=== PATIENT | male | born 1960 | race Caucasian/White ===

== ENCOUNTER 2017-11-01 15:18 | Emergency (ER) | payer OTHER ==
[~2017-11-01] VITALS: Ht 198.1 cm; Wt 104.3 kg
[~2017-11-01 15:18] MED LIST: BP MED; CHOLESTEROL MED; FAMOTIDINE20 MG PO; METHOCARBAMOL750 MG PO; METOPROLOL TART25 MG PO; NORCO 10-325 T1 EACH PO; OXECTA7.5 MG PO; OXYCODONE HCL10 MG PO; PAROXETINE HCL40 MG PO; PAXIL30 MG PO; PAXIL40 MG PO; PERCOCET 10-321 EACH PO; PERCOCET 5-3251 EACH PO; PRILOSEC20 MG PO; PROMETHAZINE HC25 M1 PO; SIMVASTATIN20 MG PO; XARELTO10 MG PO; ZOFRAN ODT4 MG SL
== END 2017-11-01 18:08 | disposition home or self-care (01) ==
LOC: ED 15:18
DX: R51 Headache (principal); I10 Essential (primary) hypertension; C71.9 Malignant neoplasm of brain, unspecified; Z88.5 Allergy status to narcotic agent; Z88.8 Allergy status to other drugs, medicaments and biological substances; Z79.899 Other long term (current) drug therapy
CPT/HCPCS: 96374; 96375; 99282; J1200; J1885; J2765

== ENCOUNTER 2018-08-06 23:01 | Emergency (ER) | payer OTHER ==
--- OUTSIDE RECORDS SUMMARY | 2018-08-06 23:06 | XMS ---
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 EConrado. VISIT COUNT (12 MO.) [address] [facility] [place] TOTAL 2 NOTE: Visits indicate total known visits. ED/UCC VISIT TRACKING (12 MO.) 08/06/2018 23:01 [facility] [place] TYPE: Emergency COMPLAINT: - FALL,HEAD INJURY/PAIN 11/01/2017 15:19 [facility] [place] TYPE: Emergency COMPLAINT: - HEADACHE DIAGNOSES: - Allergy status to narcotic agent status - Other meterman (current) drug therapy - Allergy status to other drugs, medicaments and biological substances status - Essential (primary) hypertension - Headache - Malignant neoplasm of brain, unspecified INPATIENT VISIT TRACKING (12 MO.) No inpatient visits to display in this time frame [id number]
--- NOTE | 2018-08-08 00:55 | EKG ---
[facility] [address] [place] [address] Signed Normal sinus rhythm Left bundle branch block Abnormal ECG No previous ECGs available Confirmed by SANDY BERNARD MD ([id number]) on 08/08/2018 12:54:41 AM Electronically Signed By: SANDY BERNARD MD 08/08/18 0055 PATIENT NAME: PASCUAL AHMADI Electrocardiogram DATE OF : 56 PHYSICIAN: SANDY BERNARD MD REPORT #: [id number] REPORT IS CONFIDENTIAL AND NOT TO BE RELEASED WITHOUT AUTHORIZATION
== END 2018-08-07 00:40 | disposition home or self-care (01) ==
LOC: ED 23:01
DX: S09.90XA Unspecified injury of head, initial encounter (principal); I10 Essential (primary) hypertension; E87.6 Hypokalemia; W18.30XA Fall on same level, unspecified, initial encounter; Z88.5 Allergy status to narcotic agent; Z88.8 Allergy status to other drugs, medicaments and biological substances; Z79.899 Other long term (current) drug therapy
CPT/HCPCS: 70450; 80053; 85025; 93005; 93010; 99284-25

== ENCOUNTER 2018-08-13 03:10 | Emergency (ER) | payer OTHER ==
[~2018-08-13] VITALS: Ht 198.1 cm; Wt 108.9 kg
--- OUTSIDE RECORDS SUMMARY | 2018-08-13 03:14 | XMS ---
PreManage Notification: PASCUAL AHMADI [employer] Events No recent Security Events currently on file CRITERIA MET - Group Notification - PDMP - [facility] - 2 Visits in 30 Days [facility] PHONE: Unknown Chaya Jane PA-C Treatment Current PHONE: Unknown Dr Delgado Primary Care Current PHONE: [phone] Lucina has no Care Guidelines for this patient. E.D. VISIT COUNT (12 MO.) 1 [facility] Donald 3 [facility] [place] TOTAL 4 NOTE: Visits indicate total known visits. ED/UCC VISIT TRACKING (12 MO.) 08/13/2018 03:10 [facility] [place] TYPE: Emergency COMPLAINT: - FALL [facility]12/2018 12:05 [facility] Emergency DIAGNOSES: - Concussion with loss of consciousness of 30 minutes or less, initial encounter - Fall - Altered Mental Status - recent fall, confusion, disoriented 08/06/2018 23:01 [facility] [place] TYPE: Emergency COMPLAINT: - FALL,HEAD INJURY/PAIN DIAGNOSES: - Fall on same level, unspecified, initial encounter - Allergy status to other drugs, medicaments and biological substances status - Essential (primary) hypertension - Other correction (current) drug therapy - Headache - Hypokalemia - Unspecified injury of head, initial encounter - Allergy status to narcotic agent status 11/01/2017 15:19 [facility] [place] TYPE: Emergency COMPLAINT: - HEADACHE DIAGNOSES: - Allergy status to narcotic agent status - Other watermelon inspector (current) drug therapy - Allergy status to other drugs, medicaments and biological substances status - Essential (primary) hypertension - Headache - Malignant neoplasm of brain, unspecified INPATIENT VISIT TRACKING (12 MO.) No inpatient visits to display in this time frame [id number]
[2018-08-13] MEDS ORDERED: LIPITOR10 MG PO (03:36)
[2018-08-13] MEDS ORDERED: CHLORTHALIDONE25 MG PO (03:37)
[2018-08-13] MEDS ORDERED: METOPROLOL SUCC50 MG PO (03:38)
[2018-08-13] MEDS ORDERED: GABAPENTIN300 MG PO (03:39)
[2018-08-13] MEDS ORDERED: PAROXETINE HCL40 MG PO (03:39)
[2018-08-13] MEDS ORDERED: POTASSIUM CHLO20 ME1 PO (06:21)
== END 2018-08-13 07:41 | disposition home or self-care (01) ==
LOC: ED 03:10
DX: S50.12XA Contusion of left forearm, initial encounter (principal); R41.0 Disorientation, unspecified; R26.9 Unspecified abnormalities of gait and mobility; E87.6 Hypokalemia; I10 Essential (primary) hypertension; Z88.5 Allergy status to narcotic agent; Z88.8 Allergy status to other drugs, medicaments and biological substances; Z79.899 Other long term (current) drug therapy; W19.XXXA Unspecified fall, initial encounter
CPT/HCPCS: 72170; 73090; 80048; 85025; 99284